=== PATIENT | female | born 1930 | race Caucasian/White ===

== ENCOUNTER 2017-04-15 09:37 | Emergency (ER) | payer MEDICARE ==
[~2017-04-15] VITALS: Ht 165.1 cm; Wt 78.0 kg
[~2017-04-15 09:37] MED LIST: ASCO500C PO; ASPI81 PO; CHOL1CAP6; CO Q100C9 PO; FISH100020 PO; FOSA35TA2 PO; GLUC250C5; LATA.005%O OD; LOVA20TA PO; METO25 PO; NITR0.4S SL; OYST500T77 PO; RED600TA PO; TRUS2SOL OU; VITATAB11; ZOCO40TA PO
[2017-04-15 09:42] VITALS: BP 203/85; PULSE 58; RESP 15; TEMP 98.3; O2SAT 99
[2017-04-15] MEDS ORDERED: FISH1000 PO (10:03)
[2017-04-15] MEDS ORDERED: OYST500T53 PO (10:03)
[2017-04-15] MEDS ORDERED: GABA400C5 PO (10:03)
[2017-04-15] MEDS ORDERED: MECL-62 PO ×2 (10:03→12:11)
[2017-04-15] MEDS ORDERED: MULT-65 PO (10:03)
[2017-04-15] MEDS ORDERED: STOO100C (10:03)
[2017-04-15] MEDS ORDERED: CO Q100C9 PO (10:03)
[2017-04-15] MEDS ORDERED: METO50TA PO (10:03)
[2017-04-15] MEDS ORDERED: ASPI-110 PO (10:03)
--- NOTE | 2017-04-15 10:10 | PD ---
HPI Chief Complaint: Dizziness Time Seen by Provider: 10:07 Travel History International Travel<30 days: No Contact w/Intl Traveler<30days: No Traveled to known affect area: No History of Present Illness HPI Patient presents with complaints of vertigo. Onset last night. Took meclizine this morning with improvement of her symptoms. Vertigo is aggravated with head movement. Reports an episode of vertigo one year ago in May that is exactly like this episode. She does take medications for hypertension. She did take her medications last night. History of coronary artery disease. Denies any nausea vomiting diarrhea or fever. Denies any new chest pain shortness of breath urinary or bowel symptoms. PFSH Past Medical History High Cholesterol: Yes Diminished Hearing: No Hypertension: Yes Neurologic: Yes Influenza Vaccination: Yes ?: Not LMP: [employer] Past Surgical History Coronary Artery Bypass Graft: Yes Other Surgery: Yes (KIDNEY STONES REMOVED) Social History Alcohol Use: Yes (DAILY ONE DRINK) Tobacco Use: No Substance Use: No Allergies-Medications (Allergen,Severity, Reaction): Coded Allergies: No Known Allergies (Verified , 04/15/17) Reported Meds & Prescriptions Reported Meds & Active Scripts Active Reported Stool Softener (Docusate Sodium) 100 Mg Cap 1 Cap DAILY Aspirin 81 (Aspirin) 81 Mg Tabdr 81 Mg PO DAILY Metoprolol Tartrate 50 Mg Tab 50 Mg PO HS Gabapentin 400 Mg Cap 700 Cap PO TID Fish Oil (Aurora-3 Fatty Acids) 1,000 Mg Cap 1,400 Mg PO DAILY Co Q 10 (Coenzyme Q10 (Ubidecarenone)) 100 Mg Cap 200 Mg PO DAILY Oyster Shell Calcium (Calcium Carbonate-Cholecalciferol) 500-400 Mg-Unit Tab 1 Tab PO DAILY Multi-Vitamin Daily (Multiple Vitamin) 1 Tab Tab 1 Tab PO DAILY Meclizine (Meclizine HCl) 25 Mg Tab 25 Mg PO DIRECTED PRN Review of Systems General / Constitutional: No: Fever Eyes: No: Visual changes HENT: Positive: Vertigo, No: Headaches Cardiovascular: No: Chest Pain or Discomfort Respiratory: No: Shortness of Breath Gastrointestinal: No: Abdominal Pain Genitourinary: No: Dysuria Musculoskeletal: No: Pain Skin: No Rash Neurologic: No: Weakness Psychiatric: No: Depression Endocrine: No: Polydipsia Hematologic/Lymphatic: No: Easy Bruising Physical Exam Narrative GENERAL: Well-nourished, well-developed patient. SKIN: Focused skin assessment warm/dry. HEAD: Normocephalic. Right carotid bruit EYES: No scleral icterus. No injection or drainage. NECK: Supple, trachea midline. No JVD or lymphadenopathy. CARDIOVASCULAR: Regular rate and rhythm without murmurs, gallops, or rubs. RESPIRATORY: Breath sounds equal bilaterally. No accessory muscle use. GASTROINTESTINAL: Abdomen soft, non-tender, nondistended. MUSCULOSKELETAL: No cyanosis, or edema. BACK: Nontender without obvious deformity. No CVA tenderness. Cranial nerves II through XII intact, no facial asymmetry, equal extremity strength Data Data Last Documented VS Vital Signs Date Time Temp Pulse Resp B/P Pulse Ox O2 Delivery O2 Flow Rate FiO2 04/15/17 11:18 65 18 160/85 98 Room Air 04/15/17 09:42 98.3 Orders Clonidine (Catapres) (04/15/17 10:15) Complete Blood Count With Diff (04/15/17 10:23) Comprehensive Metabolic Panel (04/15/17 10:23) Urinalysis - C+S If Indicated (04/15/17 10:23) Ct Brain W/O Iv Contrast(Rout) (04/15/17 ) Labs Laboratory Tests Test 04/15/17 04/15/17 10:30 10:45 White Blood Count 6.5 TH/MM3 Red Blood Count 4.24 MIL/MM3 Hemoglobin 13.6 GM/DL Hematocrit 40.5 % Mean Corpuscular Volume 95.5 FL Mean Corpuscular Hemoglobin 32.2 PG Mean Corpuscular Hemoglobin 33.7 % Concent Red Cell Distribution Width 13.2 % Platelet Count 196 TH/MM3 Mean Platelet Volume 8.9 FL Neutrophils (%) (Auto) 64.9 % Lymphocytes (%) (Auto) 23.4 % Monocytes (%) (Auto) 6.7 % Eosinophils (%) (Auto) 4.1 % Basophils (%) (Auto) 0.9 % Neutrophils # (Auto) 4.2 TH/MM3 Lymphocytes # (Auto) 1.5 TH/MM3 Monocytes # (Auto) 0.4 TH/MM3 Eosinophils # (Auto) 0.3 TH/MM3 Basophils # (Auto) 0.1 TH/MM3 CBC Comment DIFF FINAL Differential Comment Sodium Level 144 MEQ/L Potassium Level 4.3 MEQ/L Chloride Level 108 MEQ/L Carbon Dioxide Level 28.9 MEQ/L Anion Gap 7 MEQ/L Blood Urea Nitrogen 23 MG/DL Creatinine 0.71 MG/DL Estimat Glomerular Filtration 78 ML/MIN Rate Random Glucose 113 MG/DL Calcium Level 8.9 MG/DL Total Bilirubin 0.6 MG/DL Aspartate Amino Transf 18 U/L (AST/SGOT) Alanine Aminotransferase 24 U/L (ALT/SGPT) Alkaline Phosphatase 70 U/L Total Protein 6.8 GM/DL Albumin 3.8 GM/DL Urine Collection Type CLEAN CATCH Urine Color STRAW Urine Turbidity CLEAR Urine pH 6.5 Urine Specific Ace 1.013 Urine Protein NEG mg/dL Urine Glucose (UA) NEG mg/dL Urine Ketones NEG mg/dL Urine Occult Blood NEG Urine Nitrite NEG Urine Bilirubin NEG Urine Leukocyte Esterase TRACE Urine WBC 0-2 /hpf Urine Squamous Epithelial 0-5 /hpf Cells Microscopic Urinalysis Comment CULT NOT INDICATED Urine Collection Time 10:45 [facility] Medical Decision Making Medical Screen Exam Complete: Yes Emergency Medical Condition: Yes Differential Diagnosis Assessment and plan discussed with patient and son at bedside Narrative Course Assessment and plan discussed with patient and son at bedside. EKG reveals sinus bradycardia with first-degree AV block, rate 58. Patient received clonidine with improvement of blood pressure. CT did not reveal any acute intracranial findings. Patient received clonidine with improvement of her blood pressure. Diagnosis Primary Impression: BPV (benign positional vertigo) Qualified Code: H81.13 - BPV (benign positional vertigo), bilateral Additional Impression: Hypertensive urgency Patient Instructions: General Instructions Additional Instructions: Rest fluids and Antivert. Encouraged follow-up with her PCP. Encouraged to return to the ER with any onset of new symptoms. Encouraged to keep a blood pressure log for discussion with her PCP. Daughter will recheck medication. Med/Other Pt SpecificInfo: Prescription(s) given Scripts Meclizine 25 Mg Tab25 Mg PO TID PRN (VERTIGO) #30 TAB Ref 0 Prov:Dennys Mancuso MD 04/15/17 Disposition: 01 DISCHARGE HOME Condition: Good Dennys Mancuso MD Apr 15, 2017 10:10
[2017-04-15] MEDS ORDERED: cloNIDine HCL 0.1 MG TAB PO ONE (10:15)
[2017-04-15 10:18] VITALS: BP 232/101
[2017-04-15 10:37] LABS: AUTOMATED NEUTROPHIL # 4.2 TH/MM3 (1.8-7.7); BASOPHIL # 0.1 TH/MM3 (0-0.2); BASOPHIL % 0.9 % (0.0-2.0); EOSINOPHIL # 0.3 TH/MM3 (0-0.4); EOSINOPHIL % 4.1 % (0.0-4.0); HEMATOCRIT 40.5 % (35.0-46.0); HEMO FLAGS DIFF FINAL; LYMPH % 23.4 % (9.0-44.0); LYMPHOCYTE # 1.5 TH/MM3 (1.0-4.8); MEAN CELL VOLUME 95.5 FL (80.0-100.0); MEAN CORPUSCULAR HEMOGLOBIN 32.2 PG (27.0-34.0); MEAN CORPUSCULAR HGB CONC 33.7 % (32.0-36.0); MONO % 6.7 % (0.0-8.0); NEUT % 64.9 % (16.0-70.0); PLATELET COUNT 196 TH/MM3 (150-450); RED BLOOD COUNT 4.24 MIL/MM3 (4.00-5.30); RED CELL DISTRIBUTION WIDTH 13.2 % (11.6-17.2); WHITE BLOOD COUNT 6.5 TH/MM3 (4.0-11.0)
[2017-04-15 10:46] LABS: CHLORIDE 108 MEQ/L (98-107); POTASSIUM 4.3 MEQ/L (3.5-5.1); SODIUM (NA) 144 MEQ/L (136-145)
[2017-04-15 10:50] LABS: ANION GAP 7 MEQ/L (5-15); BICARBONATE 28.9 MEQ/L (21.0-32.0); BLOOD UREA NITROGEN 23 MG/DL (7-18)
[2017-04-15 10:51] LABS: BLOOD, URINE NEG (NEG); GLUCOSE,URINE NEG (NEG); KETONE, URINE NEG (NEG); NITRITE,URINE NEG (NEG); PH, URINE 6.5 (5.0-8.5)
[2017-04-15 10:53] LABS: ALT (GPT) 24 U/L (10-53); AST (GOT) 18 U/L (15-37); GLOMERULAR FILTRATION RATE 78 ML/MIN (>89)
[2017-04-15 10:54] LABS: TOTAL BILIRUBIN ADULT 0.6 MG/DL (0.2-1.0)
[2017-04-15 10:55] LABS: METHOD OF COLLECTION CLEAN CATCH; SQUAMOUS EPITHELIAL CELL URINE 0-5 /hpf (0-5); URINE COLOR STRAW (YELLW/STRAW); WBC, URINE 0-2 /hpf (0-5)
[2017-04-15 10:56] LABS: COMMENT (UR) CULT NOT INDICATED; CULTURE IF INDICATED CULT NOT INDICATED
[2017-04-15 10:56] LABS: ALKALINE PHOSPHATASE 70 U/L (45-117)
[2017-04-15 11:18] VITALS: BP 160/85; PULSE 65; RESP 18; O2SAT 98
--- NOTE | 2017-04-15 11:57 | RADHPO ---
EXAM DATE/TIME: 04/15/2017 11:27 [place] COMPARISON: No previous studies available for comparison. INDICATIONS : History of vertigo, dizziness today with nausea. RADIATION DOSE: 62.96 CTDIvol (mGy) MEDICAL HISTORY : Cardiovascular disease. Hypercholesterolemia. Hypertension. SURGICAL HISTORY : Stones removed. ENCOUNTER: Initial ACUITY: 1 day PAIN SCALE: 0/10 LOCATION: cranial TECHNIQUE: Multiple contiguous axial images were obtained of the head. Using automated exposure control and adj ustment of the mA and/or kV according to patient size, radiation dose was kept as low as reasonably a chievable to obtain optimal diagnostic quality images. FINDINGS: CEREBRUM: The ventricles are normal for age. No evidence of midline shift, mass lesion, hemorrhage or acute in farction. No extra-axial fluid collections are seen. POSTERIOR FOSSA: The cerebellum and brainstem are intact. The 4th ventricle is midline. The cerebellopontine angle i s unremarkable. EXTRACRANIAL: The visualized portion of the orbits is intact. SKULL: The calvaria is intact. No evidence of skull fracture. CONCLUSION: No acute intracranial findings. John House MD on April 15, 2017 at 11:54 Board Certified Radiologist. This report was verified electronically.
[2017-04-15 12:38] VITALS: BP 143/71
--- NOTE | 2017-04-16 14:54 | EKG ---
Date Performed: 04/15/2017 Time Performed: 09:55:34 PTAGE: 86 years EKG: Sinus bradycardia with first degree AV block Poor initial anterior forces V1 and V2 Nonspec ific T-wave change NO PREVIOUS TRACING for comparison DOCTOR: Edward Poole Interpretating Date/Time 04/16/2017 14:52:57
== END 2017-04-15 12:41 | disposition home or self-care (01) ==
LOC: PHED 09:37
DX: H81.13 Benign paroxysmal vertigo, bilateral (principal); R00.1 Bradycardia, unspecified; I44.0 Atrioventricular block, first degree; E78.00 Pure hypercholesterolemia, unspecified; I10 Essential (primary) hypertension; I25.10 Atherosclerotic heart disease of native coronary artery without angina pectoris
CPT/HCPCS: 70450; 80053; 81001; 85025; 93005; 99284